=== PATIENT | male | born 1975 | race Caucasian/White ===

== ENCOUNTER 2019-11-25 12:54 | Outpatient (CLI) | payer BC, SELFPAY ==
--- NOTE | ~2019-11-25 | XR_ITS ---
XR hip RT min 2V 11/25/2019 13:38 Indication: Right hip pain Procedure: 2 views right hip Comparison: No prior studies for comparison. Findings: Prominent marginal osteophyte of the right hip. No acute fracture or traumatic malalignment . There is mild joint space narrowing of the hip. No focal soft tissue abnormality. No foreign bodies . Impression: 1: Mild-moderate osteoarthritis of the right hip with prominent marginal osteophyte formation causing sclerosis overlying the femoral head. Reviewed, dictated and finalized at location A. Impression: 1: Mild-moderate osteoarthritis of the right hip with prominent marginal osteop hyte formation causing sclerosis overlying the femoral head.
--- NOTE | ~2019-11-25 | XR_ITS ---
XR lumbar spine 2-3V 11/25/2019 13:38 Indication: Low back pain and right hip pain Procedure: 3 views of the lumbar spine Comparison: 09/17/2006 Findings: No fracture or traumatic malalignment. There is mild disc narrowing at L3-4 and L5-S1. Smal l ventral osteophytes are present at multiple levels. No evidence for spondylolisthesis. Sacral boston en are symmetric. Impression: 1: Mild lumbar spondylosis. Reviewed, dictated and finalized at location A. Impression: 1: Mild lumbar spondylosis.
== END 2019-11-25 12:55 | disposition home or self-care (01) ==
LOC: CHSIMG 12:58
PROVIDERS: PCP Nurse Practitioner Family; Visit Provider Family Medicine
DX: M54.30 Sciatica, unspecified side (principal); M25.551 Pain in right hip
CPT/HCPCS: 72100; 73502

== ENCOUNTER 2020-01-29 13:50 | Outpatient (RCR) | payer BC, SELFPAY ==
--- NOTE | 2020-02-02 16:58 | PTOPEVAL ---
Thank you for referring Ronaldo Riddle to [facility] [place].? The patient is scheduled to be seen for therapy? ___2_x/week for 8 visits. Please review, sign, date and return this plan of care GINGER. I agree with and certify that the following plan of care is medically necessary. Referring Physician Date Admitting Provider: Attending Provider: Austin Carlson MD Referring Provider: *PT Outpatient Evaluation Start: 01/29/20 14:03 Freq: Status: Active Protocol: Document 01/29/20 14:03 DERREKMORANoni (Rec: 01/29/20 15:18 PIERRE [email or web address]) Therapy Assessment Status Assessment Status Assessment Status Evaluation Evaluation Information Problem Diagnosis right hip DJD Subjective Information Pt. reports that middle of Query Text:As Reported By Patient/ August he was bike riding and Family felt pain in the right groin. He notes that he developed worsening pain. He states that pain continues to fluctuate given his activity level. He states that he can only walk about 1/2 mile before having to sit due to pain. He reports use of Aleve and ice to address pain. He states that he is avoiding exercise currently due to pain . He reports that his goal is to reduce pain and be able to walk an adequate distance and return to bicycle riding. Prior Level of Function Comments Additional Prior Level of Function Pt. reports prior to December Comments he was exercising regularly and was walking several miles daily, with bicycle riding. Pain Assessment Pain Scale Pain Scale Used Numeric (1 - 10) Self Report Pain Assessment Right Groin Reported Pain Level 0 Pain Frequency Intermittent Lowest Pain Intensity 0 Greatest Pain Intensity 9 Pain Aggravating Factors Exercise/Activity,Prolonged Position,Stair Climbing, Walking,Weight Bearing/ Standing Other Pain Aggravating Factors making sharp turns Pain Score Pain Score 0: Self Report Interventions Used Interventions Used By Clinicians Exercise Lower Extremity Range of Motion Hip Range of Motion Right Hip Flexion Range of Motion - Active 90 Hip Extension Range of Motion - Active 5 Hip Abduction Range of Motion - Active 35
== END 2020-02-10 11:25 | disposition home or self-care (01) ==
LOC: CHSPT 13:50
PROVIDERS: Visit Provider Orthopaedic Surgery
DX: M16.11 Unilateral primary osteoarthritis, right hip (principal)
CPT/HCPCS: 97014; 97110; 97161; G0283

== ENCOUNTER 2020-02-04 13:54 | Outpatient (CLI) | payer BC, SELFPAY ==
--- NOTE | ~2020-02-04 | XR_ITS ---
XR lg joint inject/asp w image INDICATION: Right hip arthritis TECHNIQUE: After discussing the procedure with the patient, including the possible risks, complicatio ns, and benefits, oral consent was obtained. A timeout was performed verifying the patient's name, d ate of , and site of injection. The skin overlying the joint was prepped and draped in usual st erile fashion. Anesthetic was administered with 1% lidocaine subcutaneously. A 22 G needle was adva nced under fluoroscopic guidance into the right hip joint. Subsequently, injectate consisting of 80 m g Depo-Medrol and 2 cc of 0.5% Marcaine were instilled. The needle was removed and the entry site wa s cleaned and dressed. There were no immediate complications.] IMPRESSION: Successful right hip injection of anesthetic and steroid. Reviewed, dictated and finalized at location D. OMER HOSTESS
== END 2020-02-04 13:55 | disposition home or self-care (01) ==
LOC: CHSIMG 13:56
PROVIDERS: PCP Nurse Practitioner Family; Visit Provider Orthopaedic Surgery
DX: M16.11 Unilateral primary osteoarthritis, right hip (principal)
CPT/HCPCS: 20610; 77002; J1030

== ENCOUNTER → 2020-03-09 08:33 | Outpatient (CLI) | payer BC, SELFPAY ==
--- NOTE | ~2020-03-09 | MR_ITS ---
EXAMINATION: MR hip RT wo con DATE: 03/09/2020 09:44 INDICATION: Right hip pain TECHNIQUE: Magnetic resonance imaging (MRI) of the right hip was performed without intravenous contr ast. Sequences included full-field axial PD-weighted FS FSE and T1-weighted FSE, coronal of the pelvi s with PD-weighted FS FSE, small field of view of the right hip with axial PD-weighted FS FSE, sagit wayne PD-weighted FS FSE and coronal PD weighted FS FSE. Additional radial T1-weighted FGR oriented ort hogonal to the acetabular rim were obtained for evaluation of the labrum. COMPARISON: Right hip radiographs dated 01/26/2020 FINDINGS: Bones/labrum/cartilage: Alignment is normal. No fracture or pathologic marrow replacing process. There is avascular necrosis with typical peripheral double line sign at the bilateral femoral heads. The avascular necrosis unde rlies the majority of the articular surface at the right femoral head and a smaller portion of the woods perior and anterosuperior aspect of the left femoral head. On the smaller [id number]-gr-ylso images at the left hip there is linear increased signal which appears to extend across the articular cortex at the medial side of the anterosuperior to posterior superior humeral head. This suggests likely loose fra gment in situ which measures approximately 3.2 cm AP by 1.8 cm superolateral to inferomedial. Marrow edema extends into the right femoral neck. Mild osteoarthritis at the right hip with partial-thicknes s cartilage loss with chondral surface regularity with mild reticular edema at the anterosuperior to superior lateral aspect of the acetabulum. There is a tear at the posterior superior right acetabular labrum. There is more irregular degenerative tearing with associated os acetabula along the at the a nterior to anterosuperior and posterior inferior right labrum. Fluid: Small right hip joint effusion. Physiologic amount of fluid in the left hip joint space. Soft tissues: Normal and symmetric muscle bulk and signal in the pelvis and visualized proximal thighs. The iliopso as, gluteal and proximal hamstring tendons are normal. A few diverticula along the sigmoid colon with out adjacent inflammatory change to suggest diverticulitis. Limited evaluation of visceral organs of the pelvis is unremarkable. No pathologically enlarged pelvic/inguinal lymphadenopathy. IMPRESSION: 1. Avascular necrosis at the bilateral femoral heads, more extensive on the right where there appears be a loose fragment in situ and small right hip joint effusion. 2. Mild right hip osteoarthritis with diffuse labral degeneration. Similar findings suggested but not diagnostically evaluated on the larger field of view images of the left hip. Similar findings sugges colleen the left hip but not diagnostically evaluated on the larger field of view images. Reviewed, dictated and finalized at location A. GER TARGET IMPRESSION: 1. Avascular necrosis at the bilateral femoral heads, more extensive on the rig ht where there appears be a loose fragment in situ and small right hip joint ef fusion. 2. Mild right hip osteoarthritis with diffuse labral degeneration. Similar find ings suggested but not diagnostically evaluated on the larger field of view vahe ges of the left hip. Similar findings suggested the left hip but not diagnostic ally evaluated on the larger field of view images.
== END ==
PROVIDERS: PCP Family Medicine; Visit Provider Family Medicine
DX: M87.051 Idiopathic aseptic necrosis of right femur (principal); M16.11 Unilateral primary osteoarthritis, right hip; S73.191A Other sprain of right hip, initial encounter; M25.451 Effusion, right hip
CPT/HCPCS: 73721